=== PATIENT | female | born 1955 | race Caucasian/White ===

== ENCOUNTER 2018-05-29 15:42 | Outpatient (CLI) | payer OTHER | END 2018-05-29 15:43 | disposition home or self-care (01) | LOC: BICMAMMO 15:42 | PROVIDERS: ATTEND Family Medicine | DX: Z12.31 Encounter for screening mammogram for malignant neoplasm of breast (principal) | CPT/HCPCS: 77063; 77067 ==

== ENCOUNTER 2019-03-05 16:01 | Observation (INO) | payer BC ==
[2019-03-05 16:37] LABS: #Eosinphils 0.3 thou/uL (0.0-0.7); #Monocytes 0.7 thou/uL (0.11-0.59); #Neutrophils 4.9 thou/uL (1.40-6.50); %Basophils 0.3 % (0.0-1.0); %Eosinophils 3.3 % (0.0-10.0); %Lymphocytes 33.6 % (21.0-51.0); %Monocytes 8.1 % (0.0-10.0); %Neutrophils 54.7 % (42.0-75.0); Mean Corpuscular HGB CONC 33.5 g/dL (32.0-36.0); Mean Corpuscular Volume 86.7 fL (78.0-98.0); Mean Platelet Volume 7.2 fL (7.4-10.4); Platelet Count 250 thou/uL (130-400); Red Blood Cell (RBC) Count 4.81 mill/uL (4.20-5.40); White Blood Cell (WBC) Count 8.9 thou/uL (4.8-10.8)
[2019-03-05 17:02] LABS: ALT (SGPT) 23 U/L (8-55); AST (SGOT) 18 U/L (5-34); Albumin 4.3 g/dL (3.4-4.8); Alkaline Phosphatase 64 U/L (40-150); Anion Gap 13 mmol/L (10-20); BUN (Urea Nitrogen) 13 mg/dL (9.8-20.1); Bilirubin, Total 0.5 mg/dL (0.2-1.2); CK (CPK) 127 U/L (29-168); Calc. Creatinine Clearance 0 mL/min (70-130); Calcium 9.8 mg/dL (7.8-10.44); Carbon Dioxide 25 mmol/L (23-31); Chloride 105 mmol/L (98-107); Estimated GFR-MDRD 71; Globulin 2.8 g/dL (2.4-3.5); Glucose 85 mg/dL (80-115); Lipase 62 U/L (8-78); Potassium 3.9 mmol/L (3.5-5.1); Protein, Total 7.1 g/dL (6.0-8.3); Sodium 139 mmol/L (136-145)
--- NOTE | 2019-03-05 17:12 | RAD ---
KEVIN CHEST: Date: 03/05/19 HISTORY: Chest pain. Comparison from 2014. FINDINGS: Calcified granuloma in the peripheral left lung is stable. No infiltrate or vascular congestion. Hear t size upper normal and stable. IMPRESSION: No acute process. POS: [facility]
[2019-03-05 20:18] LABS: Troponin I Less than 0.010 ng/mL (< 0.028)
[2019-03-05] MEDS ORDERED: Aspirin Chewable 81 MG TAB ONE (20:37)
[2019-03-05] MEDS ORDERED: Nitroglycerin 2% Ointment 1 INCH/1 GM Packet ONE (20:37)
[2019-03-05 22:21] LABS: Troponin I Less than 0.010 ng/mL (< 0.028)
[2019-03-05 23:27] VITALS: BMI 38.1
[2019-03-06] MEDS ORDERED: Dextrose 5% in Water 1,000 ML IV PRN (00:24)
[2019-03-06] MEDS ORDERED: HumaLOG 300 UNITS/3 ML VIAL SC PRN ×2 (00:24)
[2019-03-06] MEDS ORDERED: Ondansetron PF 4 MG/2 ML Vial IVP PRN (00:24)
[2019-03-06] MEDS ORDERED: Dextrose 50% Abboject 50 ML SYRINGE SLOW IVP PRN (00:24)
[2019-03-06] MEDS ORDERED: Ondansetron ODT 4 MG TAB PO PRN (00:24)
[2019-03-06] MEDS ORDERED: Acetaminophen 325 MG TAB PO PRN (00:24)
[2019-03-06 02:13] LABS: #Eosinphils 0.3 thou/uL (0.0-0.7); #Lymphocytes 2.5 thou/uL (1.20-3.40); #Monocytes 0.8 thou/uL (0.11-0.59); #Neutrophils 3.8 thou/uL (1.40-6.50); %Basophils 0.6 % (0.0-1.0); %Eosinophils 4.4 % (0.0-10.0); %Monocytes 10.1 % (0.0-10.0); %Neutrophils 51.8 % (42.0-75.0); Mean Corpuscular HGB CONC 33.3 g/dL (32.0-36.0); Mean Corpuscular Volume 87.2 fL (78.0-98.0); Mean Platelet Volume 7.3 fL (7.4-10.4); Platelet Count 219 thou/uL (130-400); RBC Distribution Width 12.1 % (11.5-14.5); Red Blood Cell (RBC) Count 4.48 mill/uL (4.20-5.40); White Blood Cell (WBC) Count 7.4 thou/uL (4.8-10.8)
[2019-03-06 02:37] LABS: Troponin I Less than 0.010 ng/mL (< 0.028)
[2019-03-06 02:39] LABS: Anion Gap 13 mmol/L (10-20); BUN (Urea Nitrogen) 15 mg/dL (9.8-20.1); Calc. Creatinine Clearance 99 mL/min (70-130); Calcium 9.4 mg/dL (7.8-10.44); Carbon Dioxide 27 mmol/L (23-31); Cardiac Risk 4.7 (Less than 4.5); Chloride 104 mmol/L (98-107); Cholesterol 145 mg/dl (< 200 Desired); Estimated GFR-MDRD 65; Glucose 153 mg/dL (80-115); HDL Cholesterol 31 mg/dL (>60 Neg Risk); LDL Cholesterol, Calculated 69 mg/dL; Potassium 3.5 mmol/L (3.5-5.1); Sodium 140 mmol/L (136-145); Triglycerides 223 mg/dL (Less than 150)
--- NOTE | 2019-03-06 06:38 | HP ---
PRIMARY CARE PHYSICIAN: Shamika Melchor MD CHIEF COMPLAINT: Chest pain. HISTORY OF PRESENT ILLNESS: Ms. Euceda is a 63-year-old female with a past medical history of hypertension, hyperlipidemia, rheumatoid arthritis, and diabetes mellitus type 2, who had presented to [facility] earlier today due to some new onset chest pain and shortness of breath that started yesterday. She states that symptoms waxed and waned throughout the day yesterday and had worsened this morning. She had denied any fever, chills, any headache, blurred vision, dizziness, any palpitations, cough, abdominal pain, nausea, vomiting, or diarrhea. She also denied any numbness, tingling, or pain down her upper or lower extremities and had denied any swelling. During her initial workup, she underwent a portable chest x-ray, which found no acute process. Cardiac enzymes are less than 0.010. All other lab work was essentially unremarkable. Blood pressure and other vital signs remained stable, showed a normal EKG. She was given aspirin and nitroglycerin, which had helped with her symptoms. REVIEW OF SYSTEMS: All other systems reviewed and found to be negative unless mentioned in HPI. PAST MEDICAL HISTORY: Hypertension, hyperlipidemia, diabetes mellitus type 2, and rheumatoid arthritis. PAST SURGICAL HISTORY: section. PSYCHIATRIC HISTORY: None. SOCIAL HISTORY: The patient denies any alcohol, tobacco, or illicit drug use. The patient is a former smoker and lives at home with family. KNOWN ALLERGIES: Codeine. CURRENT HOME MEDICATIONS: 1. Metformin 1000 mg p.o. b.i.d. 2. Glipizide 5 mg p.o. daily. 3. Hydroxychloroquine 400 mg p.o. daily. 4. Montelukast 10 mg p.o. at bedtime. 5. Pravastatin 40 mg p.o. at bedtime. 6. Ramipril 10 mg p.o. daily. PHYSICAL EXAMINATION: VITAL SIGNS: BP 125/65, pulse 98, respirations 18, temperature 98.6 degrees Fahrenheit, O2 saturation 93% on room air. GENERAL: The patient is awake, alert, and oriented x3. She is currently in no acute distress at this time, lying comfortably in bed. HEENT: Atraumatic, normocephalic. Pupils are round and reactive to light. Extraocular muscles intact. Moist mucous membranes noted. NECK: Soft and supple. Trachea midline. CARDIOVASCULAR: Positive S1 and S2. Regular rate and rhythm. No murmur auscultated. RESPIRATORY: Clear to auscultation bilaterally. No wheezes, rales, or rhonchi. ABDOMEN: Soft and nontender. Bowel sounds present. MUSCULOSKELETAL: Strength 5+ bilaterally upper and lower extremities. Moves all extremities equal. Pedal and radial pulses 2+ bilaterally. No edema noted. NEUROLOGIC: Cranial nerves II through XII grossly intact. No focal deficits noted. Speech intact and normal. Gait not assessed. SKIN: Warm, dry, and intact. No rashes. No ulceration noted. PSYCHIATRIC: Good mood and affect. LABORATORY DATA: WBC 8.9, RBC 4.81, hemoglobin 14.0, hematocrit 41.7, platelets 250. Sodium 139, potassium 3.9, anion gap 13, BUN 13, creatinine 0.82, glucose 183. Troponin less than 0.010. Lipase 62. DIAGNOSTIC IMAGING: Portable chest x-ray showed no acute process. ASSESSMENT AND PLAN: 1. Chest pain. The patient will undergo further testing with a cardiac stress test in the morning. So far, cardiac enzymes are normal. She will be resumed on her home medications for underlying conditions including hypertension, diabetes, and rheumatoid arthritis, and further management pending her testing results. We will also test TSH, lipid panel, and order D-dimer. 2. History of hypertension. Continue on home regimen. 3. Diabetes mellitus, hold the patient's metformin at this time and start insulin sliding scale with frequent Accu-Cheks. 4. Hyperlipidemia. Continue home statin and check lipid panel in the morning. 5. Rheumatoid arthritis, currently stable at this time. Continue home regimen. 6. Deep venous thrombosis and gastrointestinal prophylaxis. CODE STATUS: Full code. DISPOSITION: Pending further workup and clinical findings. Job ID: [id number]
[2019-03-06] MEDS ORDERED: Diabetic Tussin 200 MG/10 ML UDCUP PO PRN (07:19)
[2019-03-06] MEDS ORDERED: Loperamide HCl 2 MG CAP PO PRN (07:19)
[2019-03-06] MEDS ORDERED: Bisacodyl 10 MG SUPP PR PRN (07:19)
[2019-03-06] MEDS ORDERED: Sodium Chloride 0.65% Nasal 44 ML BOT EA NARE PRN (07:19)
[2019-03-06] MEDS ORDERED: Artificial Tears 18 DROP/0.9 ML EA EYE PRN (07:19)
[2019-03-06] MEDS ORDERED: Senokot S 8.6-50 MG TAB PO PRN (07:19)
[2019-03-06] MEDS ORDERED: hydrALAZINE 20 MG/ML VIAL SLOW IVP PRN (07:19)
[2019-03-06] MEDS ORDERED: Loratadine 10 MG TAB PO PRN (07:19)
[2019-03-06] MEDS ORDERED: Cepastat Lozenges 1 LOZ PO PRN (07:19)
[2019-03-06] MEDS ORDERED: Nitroglycerin 0.4 MG TAB (25 Tab Bottle) SL PRN (07:19)
[2019-03-06] MEDS ORDERED: Calcium Carbonate 500 MG ChewTAB PO PRN (07:19)
[2019-03-06] MEDS ORDERED: Zolpidem Tartrate 5 MG TAB PO PRN (07:19)
--- NOTE | 2019-03-06 08:48 | CT ---
CT angiogram of chest performed with intravenous contrast enhancement with 3-D reconstructions HISTORY: Shortness of breath starting Saturday there is been worsening. Elevated d-dimer. COMPARISON: Chest x-ray done yesterday. FINDINGS: The lungs are clear of infiltrative process. There are no pleural effusions or signs of dane lure. There is a suggestion of an element of air trapping present. There are atelectatic changes within the right middle lobe. There is a anterior mediastinal soft tissue nodule measuring 2.3 cm in size, CT Hounsfield unit numbe rs are in the 30-60 range which would suggest this is not fluid density. It is in the region of the thymus. It could potentially represent a lymph node but I see no other evidence for mediastinal or hi lar adenopathy and could possibly represent some type of complex thymic cyst. Coronary artery calcifications are present. The thoracic aorta is normal in caliber. There is good pulmonary artery opacification no CT evidence for pulmonary embolus. Diffuse fatty change of the liver is seen. Partial visualization of the hypodensity within the right kidney is most compatible with a parapelvic cyst. IMPRESSION: 1. No CT evidence for pulmonary embolus. 2. 2.3 cm well-defined anterior mediastinal mass not of definite cyst density. This could represent a n enlarged anterior mediastinal lymph node however the lack of other mediastinal adenopathy would raise the possibility this represents some type of thymic lesion either a complex thymic cyst or poss ibly a thymoma. This would require further evaluation with at least a follow-up examination to assess for stability in 3 months. 3. Evidence for some mild air trapping.
[2019-03-06] MEDS ORDERED: Non-Formulary Item 1 EACH (Metformin Hcl [Metformin Hcl] 1,000 MG) PO SCH (09:00)
[2019-03-06] MEDS: Aspirin 81 mg Enteric Coated Tablet PO SCH (09:14)
[2019-03-06] MEDS: Famotidine 20 MG TAB PO SCH ×2 (09:15→20:35)
[2019-03-06] MEDS: Ramipril 5 MG CAP PO SCH (09:15)
[2019-03-06] MEDS: Enoxaparin Sodium 40 MG/0.4 ML SYRINGE SC SCH (09:16)
--- NOTE | 2019-03-06 10:17 | PDOC.PN ---
- Subjective Encounter Start Date: 03/06/19 Encounter Start Time: 07:20 Patient seen and examined. No new complaints. No overnight events - Objective Resuscitation Status - Order Detail: 03/06/19 00:24 Resuscitation Status Routine Co-Sign Provider: Resuscitation Status: FULL: Full Resuscitation MAR Reviewed: Yes Vital Signs & Weight: Vital Signs (12 hours) Temp Pulse Resp BP Pulse Ox 03/06/19 07:43 98.3 F 89 17 130/90 92 L 03/06/19 03:52 98.2 F 95 18 132/69 95 03/06/19 00:24 95 03/05/19 23:00 98.6 F 98 18 125/65 93 L Weight Weight 208 lb 9.6 oz I&O: 03/05/19 03/06/19 03/07/19 06:59 06:59 06:59 Intake Total 575 Balance 575 Result Diagrams: 03/06/19 01:46 03/06/19 01:46 Additional Labs: Accuchecks 03/06/19 03/05/19 06:27 23:12 POC Glucose 154 H 183 H EKG Reviewed by me: Yes Phys Exam - Physical Examination Constitutional: NAD HEENT: PERRLA, moist MMs, sclera anicteric Neck: no JVD, supple Respiratory: no wheezing, no rales, no rhonchi Cardiovascular: RRR, no significant murmur, no rub Gastrointestinal: soft, non-tender, no distention, positive bowel sounds Musculoskeletal: no edema, pulses present Neurological: non-focal, normal sensation, moves all 4 limbs Lymphatic: no nodes Psychiatric: normal affect, A&O x 3 Skin: no rash, normal turgor Dx/Plan (1) Mediastinal mass Status: Acute (2) Chest pain Code(s): R07.9 - CHEST PAIN, UNSPECIFIED Status: Acute (3) Diabetes type 2, controlled Code(s): E11.9 - TYPE 2 DIABETES MELLITUS WITHOUT COMPLICATIONS Status: Chronic (4) Dyslipidemia Code(s): E78.5 - HYPERLIPIDEMIA, UNSPECIFIED Status: Chronic (5) Hypertension Code(s): I10 - ESSENTIAL (PRIMARY) HYPERTENSION Status: Chronic (6) Obesity (BMI 30-39.9) Code(s): E66.9 - OBESITY, UNSPECIFIED Status: Chronic (7) Rheumatoid arthritis Code(s): M06.9 - RHEUMATOID ARTHRITIS, UNSPECIFIED Status: Chronic - Plan cont current plan of care * outpt follow up for incidental mediastinal mass * stress test today * if negative will dc * CT chest negative for PE * medication reviewed as below * symptomatic treatment Review of Systems - Review of Systems ENT: negative: Ear Pain, Ear Discharge, Nose Pain, Nose Discharge, Nose Congestion, Mouth Pain, Mouth Swelling, Throat Pain, Throat Swelling, Other Respiratory: negative: Cough, Dry, Shortness of Breath, Hemoptysis, SOB with Excertion, Pleuritic Pain, Sputum, Wheezing Cardiovascular: negative: chest pain, palpitations, orthopnea, paroxysmal nocturnal dyspnea, edema, light headedness, other Gastrointestinal: negative: Nausea, Vomiting, Abdominal Pain, Diarrhea, Constipation, Melena, Hematochezia, Other Genitourinary: negative: Dysuria, Frequency, Incontinence, Hematuria, Retention , Other Musculoskeletal: negative: Neck Pain, Shoulder Pain, Arm Pain, Back Pain, Hand Pain, Leg Pain, Foot Pain, Other - Medications/Allergies Allergies/Adverse Reactions: Allergies Allergy/AdvReac Type Severity Reaction Status Date / Time codeine Allergy Verified 03/05/19 23:33 Medications: Current Medications Acetaminophen (Tylenol) 650 mg PO Q4H PRN PRN Reason: Headache/Fever/Mild Pain (1-3) Artificial Tears (Tears Naturale) 2 drop EA EYE PRN PRN PRN Reason: Dry Eyes Aspirin (Ecotrin) 81 mg PO DAILY [facility] Last Admin: 03/06/19 09:14 Dose: 81 mg Atorvastatin Calcium (Lipitor) 10 mg PO HS [facility] Bisacodyl (Dulcolax) 10 mg MI DAILYPRN PRN PRN Reason: Constipation Calcium Carbonate (Tums) 1,000 mg PO Q4H PRN PRN Reason: Heartburn or Indigestion Dextrose/Water (Dextrose 50%) 25 gm SLOW IVP PRN PRN PRN Reason: Hypoglycemia Enoxaparin Sodium (Lovenox) 40 mg SC 0900 [facility] Last Admin: 03/06/19 09:16 Dose: 40 mg Famotidine (Pepcid) 20 mg PO BID [facility] Last Admin: 03/06/19 09:15 Dose: 20 mg Glipizide (Glucotrol Xl) 5 mg PO DAILY [facility] Glucagon (Glucagon) 1 mg IM PRN PRN PRN Reason: Hypoglycemia Guaifenesin (Robitussin Sf) 200 mg PO Q4H PRN PRN Reason: Cough Hydralazine HCl (Apresoline) 10 mg SLOW IVP Q4H PRN PRN Reason: SBP > 180 and HR < 70 Hydroxychloroquine Sulfate (Plaquenil) 400 mg PO DAILY [facility] Dextrose/Water (D5w) 1,000 mls @ 0 mls/hr IV .Q0M PRN PRN Reason: Hypoglycemia Insulin Human Lispro (Humalog) 0 units SC .MILD SLIDING SCALE PRN PRN Reason: Mild Correctional Scale Insulin Human Lispro (Humalog) 0 units SC .BEDTIME SLIDING SC PRN PRN Reason: Bedtime Correctional Scale Loperamide HCl (Imodium) 2 mg PO PRN PRN PRN Reason: Diarrhea/Loose Stools Loratadine (Claritin) 10 mg PO DAILYPRN PRN PRN Reason: Sinus Symptoms Metformin HCl (Glucophage) 1,000 mg PO BID-[facility] Montelukast Sodium (Singulair) 10 mg PO HS [facility] Nitroglycerin (Nitrostat) 0.4 mg SL Q5MIN PRN PRN Reason: Chest Pain Ondansetron HCl (Zofran Odt) 4 mg PO Q6H PRN PRN Reason: Nausea/Vomiting Ondansetron HCl (Zofran) 4 mg IVP Q6H PRN PRN Reason: Nausea/Vomiting Ramipril (Altace) 10 mg PO DAILY [facility] Last Admin: 03/06/19 09:15 Dose: 10 mg Senna/Docusate Sodium (Senokot S) 2 tab PO BID PRN PRN Reason: Constipation Sodium Chloride ([place] Nasal [place] 0.65%) 0 ml EA NARE QIDPRN PRN PRN Reason: Nasal Congestion Sodium Chloride (Flush - Normal Saline) 10 ml IVF Q12HR [facility] Last Admin: 03/06/19 09:16 Dose: 10 ml Sodium Chloride (Flush - Normal Saline) 10 ml IVF PRN PRN PRN Reason: Saline Flush Throat Lozenges (Cepastat Lozenges) 1 jose PO Q2H PRN PRN Reason: Sore Throat Zolpidem Tartrate (Ambien) 5 mg PO HSPRN PRN PRN Reason: Insomnia
[2019-03-06] MEDS ORDERED: ADENOSINE 60 MG/20 ML VIAL ONE (10:21)
--- NOTE | 2019-03-06 11:40 | DIS ---
DATE OF ADMISSION: 03/05/2019 DATE OF DISCHARGE: 03/06/2019 PRIMARY CARE PHYSICIAN: [facility] Call admission. DISCHARGE DISPOSITION: Home. PRIMARY DISCHARGE DIAGNOSES: 1. Chest pain, ruled out acute coronary syndrome. 2. Incidental mediastinal mass, suspecting thymoma. SECONDARY DISCHARGE DIAGNOSES: Rheumatoid arthritis, obesity with body mass index 38, hypertension, dyslipidemia, diabetes type 2. PRIMARY PROCEDURE/OPERATION: None. RADIOLOGICAL INVESTIGATION: Chest x-ray, no acute cardiopulmonary process. CT angiography showed no evidence of pulmonary embolism, but it did show a 2.3 cm anterior mediastinal mass, suspected for thymoma versus lymph node. Stress test result is pending. SIGNIFICANT LABORATORY DATA: CBC normal. D-dimer 0.49. BMP normal. LDL 69. Cardiac enzyme negative. TSH 1.68. DISCHARGE MEDICATIONS: The patient will continue all her previous medications, 1. Glucotrol XL 5 mg daily. 2. Plaquenil 400 mg daily. 3. Metformin 1000 mg p.o. b.i.d. 4. Singulair 10 mg p.o. at bedtime. 5. Pravastatin 40 mg p.o. at bedtime. 6. Ramipril 10 mg daily. CONTRAINDICATION: None. CODE STATUS: Full code. INPATIENT CLOTHES PRESSER: None. ALLERGIES: CODEINE. DISCHARGE PLAN: Posthospital, the patient will follow up with primary care physician in 1 week. The patient is given instruction to follow up with primary care physician. At that time, she will need repeat CT chest in a few months 3 to 5 months for evaluation of mediastinal mass. HOSPITAL COURSE: A 63-year-old female, who was admitted by Heriberto Duque, please see his H and P for further details. The patient was having chest pain. Her chest pain description was atypical. It was left-sided, dull aching in nature without any relation of aspiration, food, or activity. She had negative troponin and EKG showed sinus tachycardia and RBBB. Her D-dimer was slightly elevated, and that is why, we did CT angiography, which showed incidental anterior mediastinal mass, which was suspected for lymph node versus thymoma, and for that reason, the patient will need repeat imaging after discharge. We are doing stress test and result is pending. If stress test is negative, then this patient will be discharged home later on today. She will continue all her previous medication. The patient is seen and examined at bedside today. Please see my progress note from today for further details. Job ID: [id number]
[2019-03-06] MEDS ORDERED: ISOVUE-370 76%-LOCM 1 ML ONE (11:41)
--- NOTE | 2019-03-06 13:30 | NM ---
EXAM: Cardiac SPECT HISTORY: Chest pain, hypertension, diabetes, dyslipidemia PROTOCOL: Stress only, single isotope TYPE OF STRESS: Pharmacologic stress with adenosine was monitored and interpreted by Kamilah Lantigua RADIOPHARMACEUTICAL: 30 mCi technetium 99m-sestamibi injected intravenously FINDINGS: Homogeneous tracer distribution is seen in the myocardial segments on the post stress images. Gated SPECT LVEF: 66% Wall motion exam: Normal IMPRESSION: Normal post stress myocardial perfusion scan.
[2019-03-06] MEDS: Hydroxychloroquine Sulfate 200 MG TAB PO SCH (13:39)
[2019-03-06] MEDS: metFORMIN 500 MG TAB PO SCH ×2 (13:39→16:48)
--- NOTE | 2019-03-06 17:02 | ULT ---
ULTRASOUND ABDOMEN LIMITED: (RIGHT UPPER QUADRANT) DATE: 03/06/19 HISTORY: 63-year-old female with right upper quadrant abdominal pain. FINDINGS: Gallbladder: Normal wall thickness. No pericholecystic fluid. No sludge or gallstones. Common duct: 5 mm. Liver: Enlarged and diffusely increased echogenicity. Pancreas: Nonspecific sonographic appearance. Right kidney: Moderate dilation of entire right renal collecting system. Same findings both before an d after voiding (pre-void bladder volume 45 mL; post-void bladder volume 0). Incidental finding of 2. 5 x 2 x 2.5 cm exophytic cortical cyst at mid pole of right kidney. IMPRESSION: 1. Moderate right hydronephrosis is evidence for right high grade ureteral obstruction. 2. Hepatic steatosis and hepatomegaly. 3. No evidence of cholelithiasis, acute cholecystitis, or biliary obstruction. CODE T. JN R POS: [facility]
[2019-03-06] MEDS ORDERED: Atorvastatin Calcium 10 MG TAB PO SCH (21:00)
[2019-03-06] MEDS ORDERED: Montelukast Sodium 10 mg Tablet PO SCH (21:00)
[2019-03-07 06:05] LABS: #Basophils 0.1 thou/uL (0.0-0.2); #Eosinphils 0.3 thou/uL (0.0-0.7); #Lymphocytes 2.3 thou/uL (1.20-3.40); #Monocytes 0.8 thou/uL (0.11-0.59); #Neutrophils 3.4 thou/uL (1.40-6.50); %Basophils 0.8 % (0.0-1.0); %Eosinophils 4.4 % (0.0-10.0); %Lymphocytes 33.1 % (21.0-51.0); %Monocytes 11.6 % (0.0-10.0); %Neutrophils 50.1 % (42.0-75.0); Hemoglobin 12.9 g/dL (12.0-16.0); Mean Corpuscular HGB CONC 32.1 g/dL (32.0-36.0); Mean Corpuscular Hemoglobin 28.1 pg (27.0-31.0); Mean Corpuscular Volume 87.3 fL (78.0-98.0); Mean Platelet Volume 7.3 fL (7.4-10.4); Platelet Count 216 thou/uL (130-400); RBC Distribution Width 12.1 % (11.5-14.5); Red Blood Cell (RBC) Count 4.61 mill/uL (4.20-5.40); White Blood Cell (WBC) Count 6.8 thou/uL (4.8-10.8)
[2019-03-07 06:26] LABS: Anion Gap 11 mmol/L (10-20); BUN (Urea Nitrogen) 14 mg/dL (9.8-20.1); Calc. Creatinine Clearance 106 mL/min (70-130); Calcium 9.1 mg/dL (7.8-10.44); Carbon Dioxide 26 mmol/L (23-31); Chloride 105 mmol/L (98-107); Estimated GFR-MDRD 71; Glucose 100 mg/dL (80-115); Potassium 3.8 mmol/L (3.5-5.1); Sodium 138 mmol/L (136-145)
[2019-03-07] MEDS: Aspirin 81 mg Enteric Coated Tablet PO SCH (08:56)
[2019-03-07] MEDS: metFORMIN 500 MG TAB PO SCH (08:56)
[2019-03-07] MEDS: Enoxaparin Sodium 40 MG/0.4 ML SYRINGE SC SCH (08:57)
[2019-03-07] MEDS: Famotidine 20 MG TAB PO SCH (08:57)
[2019-03-07] MEDS: Ramipril 5 MG CAP PO SCH (08:57)
[2019-03-07] MEDS: Hydroxychloroquine Sulfate 200 MG TAB PO SCH (08:58)
--- NOTE | 2019-03-07 12:16 | CT ---
CT OF THE ABDOMEN AND PELVIS WITHOUT IV CONTRAST INDICATION: Hydronephrosis COMPARISON: Right upper quadrant ultrasound dated March 06, 2019 FINDINGS: The lack of IV contrast limits evaluation of the solid organs of the abdomen and pelvis. ABDOMEN: Lung bases: Clear Liver: Diffuse fatty infiltration with areas of focal fatty sparing near the gallbladder fossa Gallbladder: Density within the gallbladder may reflect vicarious excretion of contrast from patient 's prior CT PET examination dated March 06, 2019. No gallstones are demonstrated on the recent performed right upper quadrant ultrasound. Pancreas: Normal. Adrenal glands: Normal. Spleen: Normal. Kidneys: There is moderate right hydronephrosis. There is a 9.8 mm stone at the right UPJ. There is a 2.3 cm cyst seen extending exophytically off the lateral margin of the right interpolar region. Left kidney appears within normal limits. Retroperitoneum of the upper abdomen: There are moderate calcifications involving the abdominal pelvi c vasculature. Additional findings: None. Pelvis: Small and large bowel: Normal Bladder: Decompressed Rectal and perirectal soft tissues:Normal. Reproductive structures: Normal. Free fluid in pelvis: No free fluid is evident. Lymphadenopathy pelvis: No lymphadenopathy is evident. Osseous structures: No acute osseous abnormality. No destructive osteolytic or osteoblastic lesion i s identified. There is scattered degenerative and osteoarthritic changes. IMPRESSION: 1. 9.8 mm right UVJ stone with moderate right hydronephrosis. 2. 2.4 cm right renal cyst 3. Fatty liver
[2019-03-07 12:40] VITALS: BP 118/70; TEMP 98
[2019-03-07 13:42] LABS: Bilirubin Negative (Negative); Blood, Urine 1+ (Negative); Clarity Turbid (Clear); Glucose, Urine (Dipstick) Normal (Negative); Leukocyte 500 Leu/uL (Negative); Mucous/LPF Rare LPF (<2+); Nitrite Negative (Negative); Protein, Urine (Dipstick) 70 mg/dL (Neg-Trace); Squamous Epithelial 0-3 HPF (0-3); Urobilinogen Normal mg/dL (Less than 2); WBC/HPF Greater than 50 HPF (0-3)
[2019-03-07 13:50] LABS: Bacteria/HPF None Seen HPF (None Seen)
--- NOTE | 2019-03-07 14:10 | CON ---
DATE OF CONSULTATION: 03/07/2019 CONSULTING PHYSICIAN: Dr. Barros. CONSULTED: Dr. Fernandes. REASON FOR CONSULTATION: Hydronephrosis. HISTORY OF PRESENT ILLNESS: Ms. Euceda is a 63-year-old white female, who presented to the emergency room with new onset chest pain and some shortness of breath. She was admitted for rule out chest pain for cardiac evaluation. She underwent a CT PE protocol, which did not demonstrate any evidence of pulmonary embolism. Stress test along with laboratory evaluations were negative. She did get an abdominal ultrasound to look for possible abdominal etiologies of her chest pain and it was noted that she had moderate right hydronephrosis with high likelihood of right high-grade ureteral obstruction. I was consulted for further assistance on this. On my discussion with the patient, she states that she has a little bit of discomfort on her right side, but no significant pain. She feels well otherwise. She denies any fevers or chills, nausea, or vomiting. She is not having any dysuria, lower urinary tract symptoms. She denies seeing any gross hematuria, although her urinalysis on admission did demonstrate microhematuria. She states that she has a history of kidney stones in the past, but she denies any previous urologic surgeries as she has passed all of the stones on her own. She denies problems with recurrent urinary tract infections. She does not have any significant voiding complaints. I did request a CT stone protocol be done when I was consulted for the hydronephrosis. The findings are demonstrated below. ALLERGIES: CODEINE. HOME MEDICATIONS: 1. Metformin. 2. Glipizide. 3. Hydroxychloroquine. 4. Montelukast. 5. Pravastatin. 6. Ramipril. PAST MEDICAL HISTORY: 1. Hypertension. 2. Hyperlipidemia. 3. Type 2 diabetes. 4. Rheumatoid arthritis. 5. Nephrolithiasis. PAST SURGICAL HISTORY: . FAMILY HISTORY: Noncontributory for kidney stones. SOCIAL HISTORY: The patient denies any alcohol, tobacco, or illicit drug use. She is a former smoker, but has quit. 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 REVIEW OF SYSTEMS: A 12-point review of systems was reviewed and otherwise negative, other than what was commented on the HPI. Specifically, her shortness of breath and chest pain have mostly resolved. She did report having right upper quadrant pain approximately a week and a half ago, which she attributed to gallbladder problems, although she never had any evaluation for this. PHYSICAL EXAMINATION: VITAL SIGNS: Temperature 98, pulse 95, respirations 20, blood pressure 118/70, and saturation 95% on room air. GENERAL: No apparent distress. Well-nourished, well-developed, obese, appears stated age. HEENT: Normocephalic and atraumatic. Pupils symmetric and round. Sclerae nonicteric. Trachea midline. Moist mucous membranes. CARDIOVASCULAR: Regular rate and rhythm. Normal S1 and S2. Symmetric pulses. CHEST: No increased work of breathing. Symmetric expansion. LUNGS: Clear anteriorly. ABDOMEN: Soft, nontender, and nondistended. Positive bowel sounds. No hepatosplenomegaly. No obvious hernias. Well-healed scar. GENITOURINARY: Deferred. EXTREMITIES: No clubbing, cyanosis, or edema. MUSCULOSKELETAL: No joint deformities or joint erythema noted. Full range of motion. No significant inflammatory problems found in the hands. NEUROLOGIC: Cranial nerves 2 through 12 appear grossly intact. No focal or sensory motor deficits identified. SKIN: Warm and dry. Good turgor. No rashes or lesions. LYMPH: There is no supraclavicular, cervical, axillary, or lymphadenopathy noted. PSYCHIATRIC: Alert and oriented x3. Appropriate mood and affect. LABORATORY DATA: On laboratory evaluation, the full set of labs are in the [facility] system, which I have reviewed. Of note, the patient's white count is 6.8 with a creatinine of 0.82. Urinalysis done at the time of admission demonstrates small blood, 11 to 20 red cells, 4 to 6 white cells, no bacteria, leukocyte esterase trace, nitrite negative. There is no urine culture on file. The patient is currently not receiving any type of antibiotic therapy. CT stone protocol done today demonstrates a 9.8 mm right ureteropelvic junction stone with moderate right hydronephrosis. There is a 2.4 cm right renal cyst and no other stones noted. I have reviewed these images myself. ASSESSMENT AND PLAN: A 63-year-old white female with a right-sided approximately 1 cm right ureteropelvic junction stone with moderate hydronephrosis. She is relatively asymptomatic from this and has no evidence of renal dysfunction. No evidence of infection. She has no urgent indication for immediate stent placement or intervention of stone management at this time. It is likely that her symptoms started approximately a week and a half ago when she had the right upper quadrant pain. I told her that it would be ideal to have her stone treated within approximately 6 to 8 weeks to avoid long-term renal dysfunction. We discussed both shockwave lithotripsy versus ureteroscopy and the pros and cons of each. We also discussed stenting now, which she would not like to do due to having to work as a mental telepathist and does not want to have her activities restricted. After thorough discussion, she has elected to proceed with ureteroscopy at a future date. She would like to call her boss and let me know on potential future surgical date, which we will schedule for an outpatient surgical procedure to remove her stone at that time. We discussed the surgery in detail including the intraoperative and postoperative course and recovery as well as risks, which include, but are not limited to, bleeding, urinary tract infection, ureteral injury, bladder injury, ureteral stricture development, kidney injury, incomplete stone fragmentation, need for further procedures, prolonged stenting, and urethral injuries. She understands all these risks and states she is willing to proceed forward with ureteroscopy and right laser lithotripsy with stent placement for 1 week postoperatively. We would plan stent removal one week later, and then she will be able to resume her normal activities. She will call me with the surgical date. From my standpoint, she does not need to be kept in the hospital for this. She can be discharged when felt stable by the primary team, and she has my contact number for choosing a date for stone management in the future. We also discussed basic strategies for stone prevention, and we will continue this conversation further after her stone has been removed. Job ID: [id number]
--- NOTE | 2019-03-07 16:56 | EKG ---
Test Reason : Blood Pressure : / mmHG Vent. Rate : 104 BPM Atrial Rate : 104 BPM P-R Int : 130 ms QRS Dur : 094 ms QT Int : 366 ms P-R-T Axes : 034 -06 028 degrees QTc Int : 481 ms Sinus tachycardia Incomplete right bundle branch block Cannot rule out Anterior infarct , age undetermined Abnormal ECG Confirmed by ANNA RAMIRES DO ([id number]), general expeditor WILBER CATALAN ([id number]) on 03/07/2019 4:56:07 PM Referred By: Confirmed By:ANNA RAMIRES DO
--- NOTE | 2019-03-09 07:58 | DIS ---
DATE OF ADMISSION: 03/05/2019 DATE OF DISCHARGE: 03/07/2019 HOSPITAL COURSE: Please see my discharge summary dictated yesterday for more details. This patient was found with incidental finding of mediastinal mass/lymph node on CT angio and the patient also underwent stress test that came back negative. The patient was worried about her chest discomfort and she wanted to know more answer and that is why we did abdominal ultrasound that showed incidental finding of right hydronephrosis. Her routine blood test today came back normal with CBC normal, BMP also normal. OBJECTIVE: GENERAL: Today, the patient is doing much better. She does not have any complaint. She is on room air, stable. VITAL SIGNS: Currently temperature 97.9, pulse 81, blood pressure 143/77, saturation 93% on room air. Weight 208 pounds. GENERAL: The patient is alert and oriented. LUNGS: Clear to auscultation without any rhonchi or rales. CARDIAC: S1 and S2. Regular without any murmur. ABDOMEN: Soft and benign without any tenderness. No CVA tenderness. EXTREMITIES: No edema. No calf tenderness. NEUROLOGIC: Nonfocal examination. Today, I spoke with the patient and explained all test result. She is comfortable to go home today. I have put a consult for Urology for the patient's incidental finding of right hydronephrosis. At this point, does not suspect any acute obstruction. This is chronic finding. After urology evaluation, the patient will be discharged home today. Please see my discharge summary dictated yesterday for her home medication. Job ID: [id number]
== END 2019-03-07 15:03 | disposition home or self-care (01) ==
LOC: ERS 16:01 → 2SW 23:12
PROVIDERS: ADMIT Internal Medicine; ATTEND Internal Medicine
DX: R07.89 Other chest pain (principal); I10 Essential (primary) hypertension; E78.5 Hyperlipidemia, unspecified; M06.9 Rheumatoid arthritis, unspecified; E11.9 Type 2 diabetes mellitus without complications; N13.0 Hydronephrosis with ureteropelvic junction obstruction; Z79.82 Long term (current) use of aspirin; Z87.891 Personal history of nicotine dependence
CPT/HCPCS: 36415; 36416; 71045; 71275; 74176; 76705; 78452; 80048; 80053; 80061; 81003; 81015; 82550; 83690; 84443; 84484; 85025; 85379; 93005; 93017; 94760; 96372; A9500; G0378; J0153; J1650; Q9966

== ENCOUNTER 2019-03-25 11:15 | Outpatient (CLI) | payer BC ==
[2019-03-25 12:40] LABS: Hemoglobin 13.3 g/dL (12.0-16.0); Mean Corpuscular HGB CONC 33.6 g/dL (32.0-36.0); Mean Corpuscular Hemoglobin 28.5 pg (27.0-31.0); Mean Corpuscular Volume 84.7 fL (78.0-98.0); Mean Platelet Volume 7.4 fL (7.4-10.4); Platelet Count 267 thou/uL (130-400); Red Blood Cell (RBC) Count 4.69 mill/uL (4.20-5.40); White Blood Cell (WBC) Count 9.4 thou/uL (4.8-10.8)
[2019-03-25 12:57] LABS: Bacteria/HPF None Seen HPF (None Seen); Bilirubin Negative (Negative); Blood, Urine Trace (Negative); Clarity Turbid (Clear); Glucose, Urine (Dipstick) Normal (Negative); Leukocyte 500 Leu/uL (Negative); Nitrite Negative (Negative); Protein, Urine (Dipstick) 30 mg/dL (Neg-Trace); Squamous Epithelial 0-3 HPF (0-3); Urobilinogen Normal mg/dL (Less than 2); WBC/HPF Greater than 50 HPF (0-3)
[2019-03-25 12:58] LABS: Anion Gap 14 mmol/L (10-20); BUN (Urea Nitrogen) 14 mg/dL (9.8-20.1); Calc. Creatinine Clearance 0 mL/min (70-130); Calcium 9.4 mg/dL (7.8-10.44); Carbon Dioxide 22 mmol/L (23-31); Chloride 108 mmol/L (98-107); Estimated GFR-MDRD 70; Glucose 110 mg/dL (80-115); Potassium 4.2 mmol/L (3.5-5.1); Sodium 140 mmol/L (136-145)
[2019-03-25 13:24] LABS: INR-International Normal Ratio 1.1; PTT 37.4 SEC (22.9-36.1); Prothrombin Time 14.4 SEC (12.0-14.7)
== END 2019-03-25 11:16 | disposition home or self-care (01) ==
LOC: LABBT 11:15
PROVIDERS: ATTEND Urology
DX: Z01.818 Encounter for other preprocedural examination (principal); N13.30 Unspecified hydronephrosis
CPT/HCPCS: 80048; 81001; 85027; 85610; 85730; 87086; 93005; 93010

== ENCOUNTER 2019-04-02 08:31 | Day surgery (SDC) | payer BC ==
[2019-03-25 11:41] VITALS: BMI 36.9
[2019-04-02] MEDS ORDERED: ceFAZolin Sodium (SDC) 2 GM/100 ML BAG ONE (10:06)
[2019-04-02] MEDS ORDERED: Levofloxacin 500 mg/D5W 100 ml Premix Bag ONE (10:10)
[2019-04-02] MEDS ORDERED: Midazolam HCl 2 mg/2 ml Vial ONE (11:30)
[2019-04-02] MEDS ORDERED: Fentanyl 100 MCG/2 ML VIAL ONE ×3 (11:31→14:08)
[2019-04-02] MEDS ORDERED: Promethazine HCl 25 MG/ML VIAL ONE ×3 (13:04→15:43)
--- NOTE | 2019-04-02 14:41 | OP ---
DATE OF PROCEDURE: 04/02/2019 SERVICE: Urology. PREOPERATIVE DIAGNOSIS: Right ureteropelvic junction stone. POSTOPERATIVE DIAGNOSIS: Right ureteropelvic junction stone. PROCEDURE PERFORMED: Right ureteroscopy, laser lithotripsy, basket extraction of stone, placement of 6 x 24 double-J stent. INDICATION FOR PROCEDURE: Mrs. Euceda is a 63-year-old white female, who initially presented to the hospital approximately 2 weeks ago with right flank pain. She was admitted for other reasons, but it was noted that she had right-sided hydronephrosis, and on CT, there was a stone approximately 9 mm at the right UPJ for an unknown duration of time. We discussed options and she has elected to proceed forward with ureteroscopy and laser lithotripsy. Risks and benefits were discussed, and she has agreed to proceed forward. DESCRIPTION OF PROCEDURE: After identification of armband and verification of consent, the patient was brought back to the operating room, where she underwent general anesthesia and endotracheal intubation. She was then placed in dorsal lithotomy position, prepped and draped in usual sterile fashion. After appropriate time-out, a lubricated 22-Lebanese rigid cystoscope was introduced per urethra into the bladder. A full cystoscopy was performed, which did not demonstrate any significant mucosal abnormalities. Both ureters were in orthotopic location. Initially and unintentionally, the left ureter was initially cannulated with a Sensor wire and the dual-lumen was advanced up over the Sensor wire. At this point, it became aware that the procedure had been placed on the wrong side as the right side was actually the side of intention. The instruments were removed. The ureter showed some mild edema and minimal blood at the ureteral orifice, but I felt this was sufficient and not anything worse than just a diagnostic ureteroscopy. I did not feel that a stent would be really necessary on this side. Attention was turned to the right ureteral orifice, which was again cannulated with a 0.035 Sensor wire up to the level of renal pelvis. The cystoscope was then removed and a dual-lumen was advanced over the Sensor wire up to the level of the stone. An Amplatz Super Stiff wire was then advanced up the second lumen of the dual lumen up to the level of renal pelvis. The dual lumen was then removed, and a Sensor wire affixed to the drapes as a safety wire. An 11/13 x 28 cm ureteral access sheath was advanced over the Super Stiff wire up to the level of the proximal ureter. The inner cannula and the Super Stiff wire were then removed leaving the outer sheath in place and the Sensor wire was then placed as a safety wire. A flexible digital ureteroscope was then passed up the right ureteral access sheath up into the UPJ, where the stone was encountered with significant edema around the stone. Using a 200 micron ball-tip laser fiber, the stone was completely fragmented into small pieces, which exposed the UPJ completely. There was a significant amount of edema and damage to the urothelium secondary to long-standing impacted stone. There was a significant amount of debris within the renal pelvis, which was irrigated out using the syringe attached to the ureteroscope. All fragments that were over 1 to 2 mm were basketed out using the 1.9-Lebanese Zero Tip Nitinol basket. Upon completion, there did not appear to be any stones larger than approximately a millimeter. They maybe at the most just under 2 mm in size. All stones in other calices were removed, if there was anything large. Upon completion, all that was left was tiny dust fragments. Pull-back ureteroscopy was used, and no additional large stones were found within the ureter. The ureteroscope was then removed along with the ureteral access sheath and the cystoscope was then backloaded over the Sensor wire back into the bladder. A 6 x 24 double-J stent was advanced over the Sensor wire up to the level of the renal pelvis. The wire was then removed leaving a good curl in the kidney, a good curl in the bladder. Bladder was evaluated on the left side and the ureter showed some mild edema and a small blood clot at the ureteral orifice. This was attempted to be basketed with the 1.9-Lebanese Zero Tip basket, but this could not be removed, indicating was probably a loose clot. We will monitor the patient postoperatively to make sure she does not have any severe left flank pain. The bladder was then emptied and the cystoscope removed. The patient was then awakened, taken to PACU for recovery in stable condition. COMPLICATIONS: With initial cannulation of the left ureter, which was accidental. There was no major trauma or injury on that side other than some mild edema at the ureteral orifice. ESTIMATED BLOOD LOSS: Minimal. RETAINED TUBES AND DRAINS: A 6 x 26 double-J stent on the right. SPECIMENS: Stone for stone analysis. DISPOSITION: The patient will be discharged home pending that she is comfortable. We will then plan a followup in 1 week for cysto stent removal on the right. Job ID: [id number]
[2019-04-02] MEDS ORDERED: Ondansetron ODT 4 MG TAB ONE (17:06)
== END 2019-04-02 17:40 | disposition home or self-care (01) ==
LOC: SDC 08:31
PROVIDERS: ATTEND Urology
PROC: 0TF68ZZ Fragmentation in Right Ureter, Via Natural or Artificial Opening Endoscopic (ICD-10-PCS; principal; 2019-04-02)
PROC: 0T768DZ Dilation of Right Ureter with Intraluminal Device, Via Natural or Artificial Opening Endoscopic (ICD-10-PCS; principal; 2019-04-02)
DX: N13.2 Hydronephrosis with renal and ureteral calculous obstruction (principal); N28.89 Other specified disorders of kidney and ureter; I10 Essential (primary) hypertension; E78.5 Hyperlipidemia, unspecified; E11.9 Type 2 diabetes mellitus without complications; M06.9 Rheumatoid arthritis, unspecified; Z87.891 Personal history of nicotine dependence; Z88.5 Allergy status to narcotic agent; Z79.82 Long term (current) use of aspirin; Z79.84 Long term (current) use of oral hypoglycemic drugs; Z79.899 Other long term (current) drug therapy
CPT/HCPCS: 76000; 82365; 88300; C1769; J0690; J1956; J2250; J2550; J3010; Q0162

== ENCOUNTER 2019-05-29 14:24 | Outpatient (CLI) | payer BC ==
[~2019-05-29 14:24] MED LIST: ISOVUE-370 76%-LOCM 1 ML ONE
--- NOTE | 2019-05-29 15:35 | CT ---
CT chest with IV contrast HISTORY: Mediastinal mass. COMPARISON: 03/06/2019. FINDINGS: Lungs are well-inflated. Mild atelectasis at each anterior lung base. No pleural fluid or l obar consolidation. The well-circumscribed oval homogeneous low density mass within the upper anterior mediastinum is unc hanged in appearance from the prior study. It measures 2.3 cm x 1.8 cm greatest oblique diameter on the axial images, stable. On the coronal images, it measures up to 2.6 cm length, stable. No new medi astinal masses are apparent. Liver remains diffusely hypodense. IMPRESSION: Stable CT appearance of the well-circumscribed low density anterior upper mediastinal mas s. No new abnormalities are evident. Please consider follow-up CT in one year to evaluate for continued stability.
--- NOTE | 2019-05-29 15:41 | MMO ---
Bilateral MAMMO Bilat Screen [facility]. CLINICAL HISTORY: Patient is 63 years old and is seen for screening. The patient has no family history of breast cancer. The patient has no personal history of cancer. VIEWS: The views performed were: bilateral craniocaudal with tomosynthesis and bilateral mediolateral oblique with tomosynthesis. FILMS COMPARED: The present examination has been compared to prior imaging studies performed at [facility] on 10/27/2015, 01/30/2017, 02/12/2017 and 05/29/2018. This study has been interpreted with the assistance of computer-aided detection. MAMMOGRAM FINDINGS: There are scattered fibroglandular densities. There are no suspicious masses, suspicious calcifications, or new areas of architectural distortion. IMPRESSION: THERE IS NO MAMMOGRAPHIC EVIDENCE OF MALIGNANCY. A ROUTINE FOLLOW-UP MAMMOGRAM IN 1 YEAR IS RECOMMENDED. THE RESULTS OF THIS EXAM WERE SENT TO THE PATIENT. ACR BI-RADS Category 1 - Negative MAMMOGRAPHY NOTE: 1. A negative mammogram report should not delay a biopsy if a dominant of clinically suspicious mass is present. 2. Approximately 10% to 15% of breast cancers are not detected by mammography. 3. Adenosis and dense breasts may obscure an underlying neoplasm. Reported by: SAMARA AGUILAR MD Electonically Signed: [id number]
== END 2019-05-29 14:25 | disposition home or self-care (01) ==
LOC: BICCT 14:24
PROVIDERS: ATTEND Family Medicine
DX: Z12.31 Encounter for screening mammogram for malignant neoplasm of breast (principal); D15.0 Benign neoplasm of thymus; R22.2 Localized swelling, mass and lump, trunk
CPT/HCPCS: 71260; 77063; 77067; 82565; Q9966

== ENCOUNTER 2020-08-05 14:48 | Outpatient (CLI) | payer BC ==
--- NOTE | 2020-08-05 15:48 | BD ---
EXAM: Bone densitometry using DEXA HISTORY: 64 yo female. Screening for postmenopausal osteoporosis FINDINGS: L1--bone mineral density 1.194 g/sq cm; T score 1.9 ; Z score 3.3 L2--bone mineral density 1.252 g/sq cm; T score 2.0 ; Z score 2.7 L3--bone mineral density 1.254 g/sq cm; T score 1.5 ; Z score 2.3 L4--bone mineral density 1.221 g/sq cm; T score 1.5 ; Z score 3.3 Total L1-L4--bone mineral density 1.231 g/sq cm; T score 1.7 ; Z score 3.4 Left femoral neck--bone mineral density0.666; T score -1.6 ; Z score -0.2 Total proximal left femur--bone mineral density 0.964; T score 0.2 ; Z score 1.3 The 10 year fracture risk for a major osteoporotic fracture is 11% and for a hip fracture is 1.2%. IMPRESSION: Osteopenia
--- NOTE | 2020-08-05 15:59 | MMO ---
Bilateral MAMMO Bilat Screen [facility]. CLINICAL HISTORY: Patient is 64 years old and is seen for screening. The patient has no family history of breast cancer. The patient has no personal history of cancer. VIEWS: The views performed were: bilateral craniocaudal with tomosynthesis and bilateral mediolateral oblique with tomosynthesis. FILMS COMPARED: The present examination has been compared to prior imaging studies performed at [facility] on 01/30/2017, 02/12/2017, 05/29/2018 and 05/29/2019. This study has been interpreted with the assistance of computer-aided detection. MAMMOGRAM FINDINGS: There are scattered fibroglandular densities. There are no suspicious masses, suspicious calcifications, or new areas of architectural distortion. IMPRESSION: THERE IS NO MAMMOGRAPHIC EVIDENCE OF MALIGNANCY. A ROUTINE FOLLOW-UP MAMMOGRAM IN 1 YEAR IS RECOMMENDED. THE RESULTS OF THIS EXAM WERE SENT TO THE PATIENT. ACR BI-RADS Category 1 - Negative MAMMOGRAPHY NOTE: 1. A negative mammogram report should not delay a biopsy if a dominant of clinically suspicious mass is present. 2. Approximately 10% to 15% of breast cancers are not detected by mammography. 3. Adenosis and dense breasts may obscure an underlying neoplasm. Reported by: LAURA ESTRADA MD Electonically Signed: [id number]
== END 2020-08-05 14:49 | disposition home or self-care (01) ==
LOC: BICMAMMO 14:48
PROVIDERS: ATTEND Family Medicine
DX: Z12.31 Encounter for screening mammogram for malignant neoplasm of breast (principal); N95.9 Unspecified menopausal and perimenopausal disorder; M85.852 Other specified disorders of bone density and structure, left thigh
CPT/HCPCS: 77063; 77067; 77080

== ENCOUNTER 2021-10-20 12:05 | Outpatient (CLI) | payer MEDICARE | END 2021-10-20 12:06 | disposition home or self-care (01) | LOC: BICMAMMO 12:05 | PROVIDERS: ATTEND Family Medicine | DX: Z12.31 Encounter for screening mammogram for malignant neoplasm of breast (principal) | CPT/HCPCS: 77063; 77067 ==

== ENCOUNTER 2022-11-22 13:37 | Outpatient (CLI) | payer MEDICARE | END 2022-11-22 13:38 | disposition home or self-care (01) | LOC: BICMAMMO 13:37 | PROVIDERS: ATTEND Family Medicine | DX: Z12.31 Encounter for screening mammogram for malignant neoplasm of breast (principal); Z78.0 Asymptomatic menopausal state; M85.80 Other specified disorders of bone density and structure, unspecified site | CPT/HCPCS: 77063; 77067; 77080 ==